=== PATIENT | male | born 1940 | race Caucasian/White ===

== ENCOUNTER 2018-06-14 19:48 | Emergency (ER) | payer OTHER, BC ==
[~2018-06-14] VITALS: Ht 175.3 cm; Wt 101.6 kg
[~2018-06-14 19:48] MED LIST: LO-DOSE ASPIRIN81 M2 PO; NEXIUM40 MG BC; NORCO 5/3251 TABLET PO; PRESERVISIO1 CAPSULE PO; TOPROL XL25 MG PO
[2018-06-14 19:49] VITALS: BP 163/85
== END 2018-06-14 19:59 | disposition left against medical advice (07) ==
LOC: EME 19:48
DX: H57.9 Unspecified disorder of eye and adnexa (principal); Z53.21 Procedure and treatment not carried out due to patient leaving prior to being seen by health care provider